=== PATIENT | female | born 1995 | race Two or more races ===

== ENCOUNTER 2022-09-09 10:08 | Emergency (ER) | payer OTHER ==
[~2022-09-09] VITALS: Ht 180.3 cm; Wt 124.3 kg
[2022-09-09] MEDS ORDERED: ZITHROMAX500 MG PO (12:31)
== END 2022-09-09 13:32 | disposition home or self-care (01) ==
LOC: ER 10:08
DX: J03.90 Acute tonsillitis, unspecified (principal); J32.9 Chronic sinusitis, unspecified